=== PATIENT | female | born 1935 | race Two or more races ===

== ENCOUNTER 2016-08-20 10:14 | Outpatient (CLI) | payer MEDICARE, OTHER ==
[~2016-08-20 10:14] MED LIST: ASPI1CPM7 PO; BISA5TAB10 PO; BUPR-51 PO; HYDR-3326 PO; OMEP20CA10 PO; OXYB10TA PO; PROP20TA7 PO; SIMV40TA5 PO; TEMA7.5C12 PO; TRAM50TA2 PO
== END 2016-08-20 23:59 | disposition home health service (06) ==
LOC: WOU 10:14
PROVIDERS: ATTEND Podiatrist Foot & Ankle Surgery
DX: S81.801A Unspecified open wound, right lower leg, initial encounter (principal); Y33.XXXA Other specified events, undetermined intent, initial encounter; Y92.89 Other specified places as the place of occurrence of the external cause; Y99.8 Other external cause status; I96 Gangrene, not elsewhere classified; R60.0 Localized edema; B35.1 Tinea unguium
CPT/HCPCS: 11042; 11045; A6402

== ENCOUNTER 2016-09-17 13:25 | Outpatient (CLI) | payer MEDICARE, OTHER | END 2016-09-17 23:59 | disposition home health service (06) | LOC: WOU 13:25 | PROVIDERS: ATTEND Podiatrist Foot & Ankle Surgery | DX: L97.211 Non-pressure chronic ulcer of right calf limited to breakdown of skin (principal); S80.11XS Contusion of right lower leg, sequela; W19.XXXS Unspecified fall, sequela | CPT/HCPCS: 11042; A6402 ==

== ENCOUNTER 2016-09-24 13:25 | Outpatient (CLI) | payer MEDICARE, OTHER | END 2016-09-24 23:59 | disposition home health service (06) | LOC: WOU 13:25 | PROVIDERS: ATTEND Podiatrist Foot & Ankle Surgery | DX: I96 Gangrene, not elsewhere classified (principal); L97.811 Non-pressure chronic ulcer of other part of right lower leg limited to breakdown of skin; S80.11XS Contusion of right lower leg, sequela; W19.XXXS Unspecified fall, sequela | CPT/HCPCS: 11042; A6402 ==

== ENCOUNTER 2016-10-01 10:53 | Outpatient (CLI) | payer MEDICARE | END 2016-10-01 23:59 | disposition home health service (06) | LOC: WOU 10:53 | PROVIDERS: ATTEND Podiatrist Foot & Ankle Surgery | DX: I96 Gangrene, not elsewhere classified (principal); L97.811 Non-pressure chronic ulcer of other part of right lower leg limited to breakdown of skin; S80.11XS Contusion of right lower leg, sequela; W19.XXXS Unspecified fall, sequela | CPT/HCPCS: 11042; A6402 ==

== ENCOUNTER 2016-10-08 09:23 | Outpatient (CLI) | payer MEDICARE | END 2016-10-08 23:59 | disposition home health service (06) | LOC: WOU 09:23 | PROVIDERS: ATTEND Podiatrist Foot & Ankle Surgery | DX: L97.811 Non-pressure chronic ulcer of other part of right lower leg limited to breakdown of skin (principal); S80.11XS Contusion of right lower leg, sequela; W19.XXXS Unspecified fall, sequela | CPT/HCPCS: 11042; A6402 ==

== ENCOUNTER 2016-10-15 13:30 | Outpatient (CLI) | payer MEDICARE | END 2016-10-15 23:59 | disposition home health service (06) | LOC: WOU 13:30 | PROVIDERS: ATTEND Podiatrist Foot & Ankle Surgery | DX: L97.811 Non-pressure chronic ulcer of other part of right lower leg limited to breakdown of skin (principal); S80.11XS Contusion of right lower leg, sequela; W19.XXXS Unspecified fall, sequela | CPT/HCPCS: 11042; A6402 ==

== ENCOUNTER 2016-10-22 13:38 | Outpatient (CLI) | payer MEDICARE | END 2016-10-22 23:59 | disposition home or self-care (01) | LOC: WOU 13:38 | PROVIDERS: ATTEND Podiatrist Foot & Ankle Surgery | DX: L97.811 Non-pressure chronic ulcer of other part of right lower leg limited to breakdown of skin (principal); S80.11XS Contusion of right lower leg, sequela; W19.XXXS Unspecified fall, sequela | CPT/HCPCS: G0463 ==

== ENCOUNTER 2016-11-19 13:15 | Outpatient (CLI) | payer MEDICARE | END 2016-11-19 23:59 | disposition home or self-care (01) | LOC: WOU 13:15 | PROVIDERS: ATTEND Podiatrist Foot & Ankle Surgery | DX: Z09 Encounter for follow-up examination after completed treatment for conditions other than malignant neoplasm (principal); L85.3 Xerosis cutis; R60.0 Localized edema | CPT/HCPCS: G0463 ==

== ENCOUNTER 2018-11-03 11:18 | Outpatient (CLI) | payer MEDICARE ==
[~2018-11-03 11:18] MED LIST changes: -HYDR-3326 PO; +HYDR-3974 PO
== END 2018-11-03 23:59 | disposition home health service (06) ==
LOC: WOU 11:18
PROVIDERS: ATTEND Podiatrist Foot & Ankle Surgery
DX: S81.811A Laceration without foreign body, right lower leg, initial encounter (principal); W19.XXXA Unspecified fall, initial encounter; Y92.89 Other specified places as the place of occurrence of the external cause; M79.604 Pain in right leg; L90.9 Atrophic disorder of skin, unspecified; R60.0 Localized edema
CPT/HCPCS: 11042; A6209; A6402

== ENCOUNTER 2018-11-10 10:50 | Outpatient (CLI) | payer MEDICARE | END 2018-11-10 23:59 | disposition home health service (06) | LOC: WOU 10:50 | PROVIDERS: ATTEND Podiatrist Foot & Ankle Surgery | DX: S81.811A Laceration without foreign body, right lower leg, initial encounter (principal); W19.XXXA Unspecified fall, initial encounter; Y92.89 Other specified places as the place of occurrence of the external cause; I87.2 Venous insufficiency (chronic) (peripheral); R60.9 Edema, unspecified; S80.11XD Contusion of right lower leg, subsequent encounter; W19.XXXD Unspecified fall, subsequent encounter | CPT/HCPCS: 11042; A6209 ==

== ENCOUNTER 2018-11-17 11:50 | Outpatient (CLI) | payer MEDICARE | END 2018-11-17 23:59 | disposition home health service (06) | LOC: WOU 11:50 | PROVIDERS: ATTEND Podiatrist Foot & Ankle Surgery | DX: L97.812 Non-pressure chronic ulcer of other part of right lower leg with fat layer exposed (principal); S80.11XD Contusion of right lower leg, subsequent encounter; W19.XXXD Unspecified fall, subsequent encounter; R60.0 Localized edema | CPT/HCPCS: 99213; A6209; A6402; G0463 ==

== ENCOUNTER 2018-11-24 11:15 | Outpatient (CLI) | payer MEDICARE | END 2018-11-24 23:59 | disposition home health service (06) | LOC: WOU 11:15 | PROVIDERS: ATTEND Podiatrist Foot & Ankle Surgery | DX: L97.812 Non-pressure chronic ulcer of other part of right lower leg with fat layer exposed (principal); R60.0 Localized edema; M79.671 Pain in right foot; L84 Corns and callosities | CPT/HCPCS: 11042; A6209; A6402 ==

== ENCOUNTER 2018-12-01 11:30 | Outpatient (CLI) | payer MEDICARE | END 2018-12-01 23:59 | disposition home health service (06) | LOC: WOU 11:30 | PROVIDERS: ATTEND Podiatrist Foot & Ankle Surgery | DX: L97.818 Non-pressure chronic ulcer of other part of right lower leg with other specified severity (principal); R60.0 Localized edema; M79.671 Pain in right foot; L84 Corns and callosities | CPT/HCPCS: 99214; A6402; G0463 ==